=== PATIENT | female | born 1980 | race African-American/Black ===

== ENCOUNTER 2020-09-11 16:39 | Emergency (ER) | payer MEDICARE, MEDICAID ==
[~2020-09-11] VITALS: Ht 165.1 cm; Wt 79.0 kg
[~2020-09-11 16:39] MED LIST: ASEN10TA10 SL
[2020-09-11 18:11] LABS: *AMPHETAMINES SCREEN URINE NEGATIVE (NEGATIVE); *BARBITURATES SCREEN URINE NEGATIVE (NEGATIVE); *BENZODIAZEPINES SCREEN URINE NEGATIVE (NEGATIVE); *COCAINE SCREEN URINE NEGATIVE (NEGATIVE); METHADONE URINE SCREEN NEGATIVE (NEGATIVE)
[2020-09-11 18:12] LABS: CANNABINOID URINE SCREEN NEGATIVE (NEGATIVE); OPIATES URINE SCREEN NEGATIVE (NEGATIVE); PHENCYCLIDINE URINE SCREEN NEGATIVE (NEGATIVE)
[2020-09-11] MEDS ORDERED: RISP2TAB85 MT ×2 (21:15)
[2020-09-11] MEDS ORDERED: RISPERIDONE 1MG TABLET PO SCH (21:30)
[2020-09-11] MEDS ORDERED: RISP2TAB53 PO (21:34)
[2020-09-11 21:37] VITALS: BP 141/87
== END 2020-09-11 21:37 | disposition home or self-care (01) ==
LOC: ER 16:39
DX: R44.0 Auditory hallucinations (principal); R44.1 Visual hallucinations; F84.0 Autistic disorder; I10 Essential (primary) hypertension
CPT/HCPCS: 80305; 81025; 99283

== ENCOUNTER 2021-04-04 16:26 | Inpatient (IN) | payer MEDICARE, MEDICAID ==
[~2021-04-04] VITALS: Ht 157.5 cm; Wt 62.6 kg
[~2021-04-04 16:26] MED LIST changes: -ASEN10TA10 SL; +RISP2TAB53 PO
[2021-04-04 21:20] LABS: CHLORIDE 110 mEq/L (98-107)
[2021-04-04 21:33] LABS: MEAN CORPUSCULAR HEMOGLOBIN 23.7 pg (28.0-32.0); MEAN PLATELET VOLUME 7.5 fl (7.4-10.4); PLATELET 660 x1000/uL (130-400); RED BLOOD CELL COUNT 1.48 mill/uL (4.2-5.4); RED CELL DISTRIBUTION WIDTH 30.2 % (11.6-14.6)
[2021-04-04 21:35] LABS: HCG SCREEN NEGATIVE
[2021-04-04 21:37] LABS: HEMOGLOBIN. 3.5 g/dL (12.0-16.0)
[2021-04-04 21:55] LABS: PLATELET ESTIMATE INCREASED
[2021-04-04] MEDS ORDERED: MORPHINE SULFATE 4 MG/ML CPJ (NOT FOR IM USE) IV NR (23:00)
[2021-04-04] MEDS ORDERED: PIPERACILLIN/TAZ 3.375G PREMIX 50 ML IV NR (23:00)
[2021-04-04] MEDS ORDERED: VANCOMYCIN 1 G PREMIX 200 ML IV NR (23:00)
[2021-04-04] MEDS ORDERED: CLINDAMYCIN 600 MG in DEXTROSE 5% WATER 50 ML IV ONE (23:00)
[2021-04-04] MEDS ORDERED: SODIUM CHLORIDE 0.9% 1000ML BAG (SEPSIS BOLUS) IV NR (23:00)
[2021-04-04] MEDS ORDERED: ONDANSETRON HCL 4MG/2ML INJ IV NR (23:00)
[2021-04-04 23:10] LABS: CLARITY URINE CLOUDY (CLEAR); COLOR URINE YELLOW (YELLOW); KETONES URINE NEGATIVE (NEGATIVE); LEUKOCYTE ESTERASE URINE 2+ (NEGATIVE); NITRITE URINE NEGATIVE (NEGATIVE); OCCULT BLOOD URINE TRACE (NEGATIVE); PROTEIN URINE TRACE (NEGATIVE); SPECIFIC GRAVITY URINE 1.015 (1.005-1.030); UROBILINOGEN URINE 0.2 E.U./dL (0.2-1.0)
[2021-04-04] MEDS ORDERED: CLINDAMYCIN 600MG PREMIX 50 ML IV NR (23:15)
[2021-04-04 23:20] LABS: *AMPHETAMINES SCREEN URINE NEGATIVE (NEGATIVE); *BARBITURATES SCREEN URINE NEGATIVE (NEGATIVE); *BENZODIAZEPINES SCREEN URINE NEGATIVE (NEGATIVE); *COCAINE SCREEN URINE NEGATIVE (NEGATIVE); METHADONE URINE SCREEN NEGATIVE (NEGATIVE); OPIATES URINE SCREEN NEGATIVE (NEGATIVE)
[2021-04-04 23:21] LABS: CANNABINOID URINE SCREEN NEGATIVE (NEGATIVE); PHENCYCLIDINE URINE SCREEN NEGATIVE (NEGATIVE)
[2021-04-05] VITALS (57 sets, daily range): BP systolic 86–166; BP diastolic 42–89
[2021-04-05] MEDS ORDERED: NOREPINEPHRINE 8 MG in DEXTROSE 5% WATER 250 ML IV PRN (04:45)
[2021-04-05] MEDS ORDERED: ACETAMINOPHEN 325MG TABLET PO PRN (06:15)
[2021-04-05] MEDS ORDERED: ONDANSETRON HCL 4MG/2ML INJ IV PRN (06:15)
[2021-04-05] MEDS ORDERED: GUAIFENESIN 200MG/10ML SUGAR FREE UDC PO PRN (06:15)
[2021-04-05] MEDS ORDERED: IOHEXOL-300 100 ML BOTTLE ONE (07:03)
[2021-04-05] MEDS ORDERED: PIPERACILLIN/TAZ 3.375G PREMIX 50 ML IV SCH (07:30)
[2021-04-05] MEDS: NOREPINEPHRINE 8 MG in DEXT 5% WATER 242 ML IV PRN (08:30)
[2021-04-05] MEDS ORDERED: HYDROMORPHONE HCL/PF 2MG/ML CPJ IV PRN (12:15)
[2021-04-05] MEDS ORDERED: HYDROCODONE/APAP 7.5/325MG 1 TAB TABLET PO PRN (12:15)
[2021-04-05] MEDS: MIDODRINE HCL 5MG TABLET PO SCH ×3 (13:00→17:43)
[2021-04-05] MEDS: VANCOMYCIN 1 G PREMIX 200 ML IV SCH (13:39)
[2021-04-05] MEDS: SODIUM CHLORIDE 0.9% 1,000 ML IV SCH ×2 (13:39→17:44)
[2021-04-05] MEDS: PIPERACILLIN/TAZOBACTAM 3.375G in DEXT 5% WATER 50ML IV SCH ×3 (13:40→22:05)
[2021-04-05] MEDS ORDERED: NALOXONE HCL 0.4MG/ML VIAL IV PRN (13:45)
[2021-04-05 20:03] LABS: HEMATOCRIT 25.8 % (36.0-48.0)
[2021-04-06] VITALS (87 sets, daily range): BP systolic 79–130; BP diastolic 37–92
[2021-04-06] MEDS: PIPERACILLIN/TAZOBACTAM 3.375G in DEXT 5% WATER 50ML IV SCH ×3 (06:27→22:18)
[2021-04-06 07:15] LABS: BASOPHILS % 0.6 % (0.0-2.0); EOSINOPHILS % 0.3 % (0.0-5.0); HEMATOCRIT. 21.8 % (36.0-48.0); HEMOGLOBIN. 7.1 g/dL (12.0-16.0); LYMPHOCYTES % 14.4 % (20.0-50.0); MEAN CORPUSCULAR VOLUME 86.2 fL (81.0-99.0); MONOCYTES % 5.2 % (2.0-8.0); NEUTROPHILS % 79.5 % (40.0-76.0); PLATELET 661 x1000/uL (130-400); RED BLOOD CELL COUNT 2.52 mill/uL (4.2-5.4); RED CELL DISTRIBUTION WIDTH 21.3 % (11.6-14.6)
[2021-04-06] MEDS: SODIUM CHLORIDE 0.9% 1,000 ML IV SCH ×3 (07:15→22:18)
[2021-04-06 07:21] LABS: CHLORIDE 117 mEq/L (98-107)
[2021-04-06] MEDS: NOREPINEPHRINE 8 MG in DEXT 5% WATER 242 ML IV PRN (07:48)
[2021-04-06] MEDS: MIDODRINE HCL 5MG TABLET PO SCH ×3 (08:33→16:56)
[2021-04-06] MEDS: VANCOMYCIN 1 G PREMIX 200 ML IV SCH ×2 (08:33)
[2021-04-07] VITALS (62 sets, daily range): BP systolic 80–150; BP diastolic 44–131
[2021-04-07] MEDS: VANCOMYCIN 750 MG in DEXT 5% WATER 250 ML IV SCH ×2 (00:29→12:00)
[2021-04-07] MEDS: PIPERACILLIN/TAZOBACTAM 3.375G in DEXT 5% WATER 50ML IV SCH ×3 (05:57→21:40)
[2021-04-07 06:00] LABS: CHLORIDE 118 mEq/L (98-107)
[2021-04-07 06:03] LABS: BASOPHILS % 0.5 % (0.0-2.0); EOSINOPHILS % 0.5 % (0.0-5.0); LYMPHOCYTES % 12.9 % (20.0-50.0); MEAN CORPUSCULAR HEMOGLOBIN 27.5 pg (28.0-32.0); MEAN PLATELET VOLUME 6.8 fl (7.4-10.4); MONOCYTES % 6.1 % (2.0-8.0); PLATELET 528 x1000/uL (130-400); RED BLOOD CELL COUNT 1.99 mill/uL (4.2-5.4); RED CELL DISTRIBUTION WIDTH 21.1 % (11.6-14.6)
[2021-04-07 06:22] LABS: HEMOGLOBIN. 5.5 g/dL (12.0-16.0)
[2021-04-07 06:23] LABS: HEMATOCRIT. 17.5 % (36.0-48.0)
[2021-04-07] MEDS: MIDODRINE HCL 5MG TABLET PO SCH ×3 (09:00→17:11)
[2021-04-07] MEDS: SODIUM CHLORIDE 0.9% 1,000 ML IV SCH ×2 (09:08→18:00)
[2021-04-07] MEDS ORDERED: CALCIUM CHLORIDE 1GM/10ML SYR IV ONE (11:44)
[2021-04-07] MEDS ORDERED: DEXAMETHASONE 4MG/ML 1ML VIAL ONE (11:45)
[2021-04-07] MEDS ORDERED: HYDROMORPHONE HCL/PF 2MG/ML CPJ IV PRN (12:15)
[2021-04-07] MEDS ORDERED: ONDANSETRON HCL 4MG/2ML INJ IV PRN (12:15)
[2021-04-07] MEDS ORDERED: MEPERIDINE HCL/PF 25MG/ML CPJ IV PRN (12:15)
[2021-04-07] MEDS ORDERED: LABETALOL 5MG/ML SYR 20 MG/4 ML SYRINGE IV PRN (12:15)
[2021-04-08] VITALS (68 sets, daily range): BP systolic 89–135; BP diastolic 52–84
[2021-04-08] MEDS: VANCOMYCIN 750 MG in DEXT 5% WATER 250 ML IV SCH (03:37)
[2021-04-08] MEDS: PIPERACILLIN/TAZOBACTAM 3.375G in DEXT 5% WATER 50ML IV SCH ×3 (05:33→22:08)
[2021-04-08] MEDS: SODIUM CHLORIDE 0.9% 1,000 ML IV SCH (05:33)
[2021-04-08 06:23] LABS: BASOPHILS % 0.2 % (0.0-2.0); LYMPHOCYTES % 9.2 % (20.0-50.0); MEAN CORPUSCULAR HEMOGLOBIN 29.2 pg (28.0-32.0); MEAN CORPUSCULAR VOLUME 87.9 fL (81.0-99.0); MEAN PLATELET VOLUME 7.1 fl (7.4-10.4); MONOCYTES % 1.9 % (2.0-8.0); NEUTROPHILS % 88.7 % (40.0-76.0); PLATELET 471 x1000/uL (130-400); RED BLOOD CELL COUNT 3.41 mill/uL (4.2-5.4); RED CELL DISTRIBUTION WIDTH 17.1 % (11.6-14.6)
[2021-04-08 06:27] LABS: CHLORIDE 116 mEq/L (98-107)
[2021-04-08] MEDS: MIDODRINE HCL 5MG TABLET PO SCH ×3 (09:44→17:00)
[2021-04-09] VITALS (49 sets, daily range): BP systolic 89–163; BP diastolic 36–109
[2021-04-09] MEDS: PIPERACILLIN/TAZOBACTAM 3.375G in DEXT 5% WATER 50ML IV SCH ×3 (06:40→21:24)
[2021-04-09 07:04] LABS: BASOPHILS % 0.2 % (0.0-2.0); EOSINOPHILS % 0.5 % (0.0-5.0); HEMATOCRIT. 27.8 % (36.0-48.0); HEMOGLOBIN. 9.3 g/dL (12.0-16.0); MEAN CORPUSCULAR HEMOGLOBIN 29.5 pg (28.0-32.0); MEAN CORPUSCULAR VOLUME 88.2 fL (81.0-99.0); MEAN PLATELET VOLUME 6.9 fl (7.4-10.4); MONOCYTES % 4.1 % (2.0-8.0); NEUTROPHILS % 75.2 % (40.0-76.0); PLATELET 498 x1000/uL (130-400); RED BLOOD CELL COUNT 3.15 mill/uL (4.2-5.4); RED CELL DISTRIBUTION WIDTH 17.5 % (11.6-14.6)
[2021-04-09 07:10] LABS: CHLORIDE 115 mEq/L (98-107)
[2021-04-09] MEDS: MIDODRINE HCL 5MG TABLET PO SCH ×2 (08:37→16:42)
[2021-04-10] VITALS: BP 92/56
[2021-04-10 06:19] LABS: BASOPHILS % 0.3 % (0.0-2.0); EOSINOPHILS % 1.1 % (0.0-5.0); HEMATOCRIT. 28.2 % (36.0-48.0); HEMOGLOBIN. 9.4 g/dL (12.0-16.0); LYMPHOCYTES % 22.4 % (20.0-50.0); MEAN CORPUSCULAR HEMOGLOBIN 29.7 pg (28.0-32.0); MEAN CORPUSCULAR VOLUME 88.5 fL (81.0-99.0); MEAN PLATELET VOLUME 6.9 fl (7.4-10.4); MONOCYTES % 4.5 % (2.0-8.0); NEUTROPHILS % 71.7 % (40.0-76.0); PLATELET 495 x1000/uL (130-400); RED BLOOD CELL COUNT 3.18 mill/uL (4.2-5.4); RED CELL DISTRIBUTION WIDTH 17.8 % (11.6-14.6)
[2021-04-10 07:50] LABS: CHLORIDE 115 mEq/L (98-107)
[2021-04-10 08:00] VITALS: BP 101/64
[2021-04-10] MEDS: MIDODRINE HCL 5MG TABLET PO SCH ×3 (10:05→18:59)
[2021-04-10 12:25] VITALS: BP 100/64
[2021-04-10 16:33] VITALS: BP 116/82
[2021-04-10 20:00] VITALS: BP 103/65
[2021-04-11] VITALS: BP 100/62
[2021-04-11 08:00] VITALS: BP 111/69
[2021-04-11] MEDS: MIDODRINE HCL 5MG TABLET PO SCH ×3 (09:36→17:11)
[2021-04-11] MEDS: SULFAMETHOXAZOLE/TRIMETHOPRIM 400/80MG TAB PO SCH ×2 (11:29→22:25)
[2021-04-11 12:00] VITALS: BP 106/70
[2021-04-11 16:00] VITALS: BP 100/70
[2021-04-11 20:00] VITALS: BP 110/74
[2021-04-12] VITALS: BP 108/68
[2021-04-12 07:24] LABS: BASOPHILS % 0.8 % (0.0-2.0); EOSINOPHILS % 1.3 % (0.0-5.0); HEMOGLOBIN. 9.5 g/dL (12.0-16.0); LYMPHOCYTES % 20.8 % (20.0-50.0); MEAN CORPUSCULAR HEMOGLOBIN 30.2 pg (28.0-32.0); MEAN CORPUSCULAR VOLUME 88.7 fL (81.0-99.0); MONOCYTES % 5.3 % (2.0-8.0); NEUTROPHILS % 71.8 % (40.0-76.0); PLATELET 417 x1000/uL (130-400); RED BLOOD CELL COUNT 3.15 mill/uL (4.2-5.4); RED CELL DISTRIBUTION WIDTH 18.1 % (11.6-14.6)
[2021-04-12 07:35] LABS: CHLORIDE 112 mEq/L (98-107)
[2021-04-12 08:00] VITALS: BP 106/73
[2021-04-12] MEDS: SULFAMETHOXAZOLE/TRIMETHOPRIM 400/80MG TAB PO SCH (09:26)
[2021-04-12] MEDS: MIDODRINE HCL 5MG TABLET PO SCH ×2 (09:26→13:56)
[2021-04-12 12:00] VITALS: BP 98/65
[2021-04-12 15:40] VITALS: BP 116/68
[2021-04-12 15:45] VITALS: BP 116/68
== END 2021-04-12 16:35 | DRG 853 ==
LOC: ER 16:26 → MICUSO 04-05 02:39 → ENRESERV 04-05 05:54 → CVICU 04-05 07:59 → 6WST 04-09 12:48
PROVIDERS: ADMIT Hospitalist; ATTEND Hospitalist
PROC: 30233N1 Transfusion of Nonautologous Red Blood Cells into Peripheral Vein, Percutaneous Approach (ICD-10-PCS; 2021-04-05)
PROC: 0JBM0ZZ Excision of Left Upper Leg Subcutaneous Tissue and Fascia, Open Approach (ICD-10-PCS; principal; 2021-04-07)
DX: A41.9 Sepsis, unspecified organism (principal); R65.21 Severe sepsis with septic shock; E43 Unspecified severe protein-calorie malnutrition; N39.0 Urinary tract infection, site not specified; D49.89 Neoplasm of unspecified behavior of other specified sites; Z20.822 Contact with and (suspected) exposure to COVID-19; I10 Essential (primary) hypertension; R19.04 Left lower quadrant abdominal swelling, mass and lump; S81.802A Unspecified open wound, left lower leg, initial encounter; D64.9 Anemia, unspecified; S81.801A Unspecified open wound, right lower leg, initial encounter; X58.XXXA Exposure to other specified factors, initial encounter; Y93.89 Activity, other specified; Y92.89 Other specified places as the place of occurrence of the external cause; Y99.8 Other external cause status; Z82.49 Family history of ischemic heart disease and other diseases of the circulatory system; Z68.25 Body mass index [BMI] 25.0-25.9, adult
CPT/HCPCS: 36415; 71045; 72192; 73700; 74177; 80053; 80202; 80305; 81003; 83605; 83735; 83880; 84134; 84145; 84484; 84703; 85014; 85018; 85025; 86850; 86900; 86920; 87070; 87077; 87186; 87426; 88305; 93005; 93970; 97116; 97162; 97530; 99291; J1100; J1170; J2270; J2405; J2543; J3370; J3490; J7040; J7060; P9016; Q9967; A4315